=== PATIENT | female | born 1965 | race Caucasian/White ===

== ENCOUNTER 2018-11-25 11:46 | Emergency (ER) | payer MEDICAID, OTHER ==
--- NOTE | 2018-11-25 12:02 | EDPHY ---
H & P Stated Complaint: R breast wound opening - Personal History Current Tetanus/Diphtheria Vaccine: Unsure Current Tetanus Diphtheria and Acellular Pertussis (TDAP): Unsure - Medical/Surgical History Hx Asthma: No Hx Chronic Respiratory Disease: No Hx Diabetes: No Hx Cardiac Disease: No Hx Renal Disease: No Hx Cirrhosis: No Hx Alcoholism: No Hx HIV/AIDS: No Hx Splenectomy or Spleen Trauma: No Other PMH: Benign breast tumor removal R, - Social History Smoking Status: Never smoked Time Seen by Provider: 11/25/18 11:56 Constitutional: Initial Vital Signs Temperature (C) 37.2 C 11/25/18 11:51 Heart Rate 103 H 11/25/18 11:51 Respiratory Rate 16 11/25/18 11:51 Blood Pressure 123/95 H 11/25/18 11:51 O2 Sat (%) 97 11/25/18 11:51 O2 Delivery Mode Room Air Allergies/Adverse Reactions: Sulfa (Sulfonamide Antibiotics) Allergy (Unknown, Verified 11/25/18 11:51) sulfamethoxazole [From Bactrim] Allergy (Unknown, Verified 11/25/18 11:51) trimethoprim [From Bactrim] Allergy (Unknown, Verified 11/25/18 11:51) Medical Decision Making ED Course/Re-evaluation: CHIEF COMPLAINT: Open wound at site of old right breast surgery scar HISTORY OF PRESENT ILLNESS: The patient is a 53 y/o female with a history of right breast surgery ( lumpectomy, partial mastectomy, and breast implants) complaining of an open wound at the site of her breast surgery from several years ago. She initially noticed the wound opening up "a while ago". She also reports that her last mammogram was "a while ago". However, her symptoms have not improved, which concerned her. No fever, headache, body aches, lightheadedness, chest pain, heart palpitations, shortness of breath, cough, abdominal pain, urinary or bowel complaints, numbness, paresthesias. REVIEW OF SYSTEMS: A 10 point review of systems was performed and is negative with the exception of the elements mentioned in the history of present illness. PHYSICAL EXAM: HR, BP, O2 Sat, RR. Temp noted General Appearance: Alert, well hydrated, appropriate, and non-toxic appearing. Head: Atraumatic without scalp tenderness or obvious injury Eyes: Pupils equal, round, reactive to light and accommodation, EOMI, no trauma , no injection. Ears: Clear bilaterally, no perforation, normal landmarks Nose: Atraumatic, no rhinorrhea, clear. Throat: There is no erythema or exudates, no lesions, normal tonsils, mucus membranes moist. Neck: Supple, 2+ carotid upstroke, nontender, no lymphadenopathy. Respiratory: No retractions, no distress, no wheezes, and no accessory muscle use. Lungs are clear to auscultation bilaterally. Cardiovascular: Regular rate and rhythm, no murmurs, rubs, or gallops. Bilateral carotid, radial, dorsalis pedis, and posterior tibial pulses intact. Good capillary refill all extremities. Gastrointestinal: Abdomen is soft, nontender, non-distended, no masses, no rebound, no guarding, no peritoneal signs. Musculoskeletal: Normal active ROM of all extremities, atraumatic. Neurological: Alert, appropriate, and interactive. The patient has normal DTRs and non-focal cranial nerves, motor, sensory, and cerebellar exam. Skin: Wound dehiscence at inferior aspect of right breast with some granulation. No rashes, good turgor, no nodules on palpation. Past medical history: Benign breast tumor Past surgical history: Right breast lumpectomy, partial mastectomy, and breast implants (2006 in [place]) Family history: Denies Social history: Lives in [place], single, self-employed DIAGNOSTICS/PROCEDURES/CRITICAL CARE TIME: Breast MRI: Pending at shift change. DIFFERENTIAL DIAGNOSIS: The differential diagnosis for the patient's open wound includes but is not limited to wound dehiscence, bacterial infection, fungal infection, prosthesis problem. MEDICAL DECISION MAKING: The patient is a 53 y/o female with a history of right breast surgery ( lumpectomy, partial mastectomy, and breast implants) presenting with an open wound at the site of her breast surgery from several years ago. She initially noticed the wound opening up "a while ago". On exam there is wound dehiscence at the inferior aspect of her right breast with some granulation. I will consult with general surgery regarding this wound. 1213: I consulted with Dr. Garcia, general surgeon, regarding this patient. He will come down to the emergency department in 30 minutes to examine and consult on this patient. 1250: I consulted with Dr. Garcia after he saw this patient. Patient will need a breast MRI which I have ordered. Once the breast MRI is completed the patient can be discharged home as the breast MRI is for Dr. Garcia in his outpatient office. 1310: I spoke with Dr. Plasencia, who reports that MRI cannot take the patient to MRI until 5:00pm. 1315: Reassessed patient and discussed MRI delay. She is comfortable with waiting. 1500: Patient care turned over to Dr. Monzon at shift change; pending breast MRI. (Ariel Thomas) 1500: Patient is signed out to me at change of shift by Dr. Thomas. The patient is awaiting MRI imaging. Per report after imaging the patient can be discharged home. 18 30: Patient had an incomplete MRI because she became anxious during the study. She stopped the study from being completed. Patient was sent back to the emergency department. I discussed calls with Dr. Akshat Bryson. He felt there was no fluid collection. He also felt that the implant was not broken. I discussed the results with Dr. Garcia who ordered this study. He did not want the patient sent back to MRI imaging. He felt comfortable having the patient discharged with close follow-up. I discussed this plan with the patient. I answered all her questions. She was given warnings prior to leaving. (Soco Monzon) Departure - Departure Disposition: Home, Routine, Self-Care Clinical Impression: Wound of right breast Qualifiers: Encounter type: initial encounter Qualified Code(s): S21.001A - Unspecified open wound of right breast, initial encounter Condition: Good Instructions: Wound Dehiscence (ED) Additional Instructions: 1. Follow up with Dr. Garcia, general surgeon, within the next week. 2. Return to the Emergency Department for fever, redness, discharge from wound, increasing pain or other worsening of condition. Referrals: Mauricio Garcia MD [Medical Doctor] - 2-3 days without fail Report Scribed for: Ariel Thomas Report Scribed by: Riddhi Ko Date of Report: 11/25/18 Time of Report: 12:01
[2018-11-25] MEDS ORDERED: GADOBUTROL 10 ML VIAL IVP ONE (16:56)
[2018-11-25 18:33] VITALS: BP 122/78
== END 2018-11-25 18:49 | disposition home or self-care (01) ==
DX: S21.001A Unspecified open wound of right breast, initial encounter (principal); Z90.11 Acquired absence of right breast and nipple
CPT/HCPCS: 77047; A9585

== ENCOUNTER 2019-01-13 13:37 | Outpatient (CLI) | payer MEDICAID | END 2019-01-13 17:27 | disposition home or self-care (01) | LOC: FIMAGING 13:37 ==